=== PATIENT | male | born 1980 | race Caucasian/White ===

== ENCOUNTER 2024-06-03 06:26 | Emergency (ER) | payer SELFPAY ==
[2024-06-03 07:03] LABS: BASOPHILS ABSOLUTE AUTO 0.1 K/mm3 (0.0-0.2); BASOPHILS PERCENT AUTO 0.6 % (0.0-1.0); EOSINOPHILS ABSOLUTE AUTO 0.1 K/mm3 (0.0-0.4); EOSINOPHILS PERCENT AUTO 0.8 % (0.0-6.0); HEMATOCRIT 46.3 % (42.0-52.0); HEMOGLOBIN 16.4 gm/dl (14.0-18.0); IMMATURE GRAN ABSOLUTE AUTO 0.04 K/mm3 (0.00-0.05); IMMATURE GRAN PERCENT AUTO 0.3 % (0.0-0.4); LYMPHOCYTES ABSOLUTE AUTO 2.8 K/mm3 (1.0-4.8); LYMPHOCYTES PERCENT AUTO 22.4 % (24.0-44.0); MEAN CORPUSCULAR HEMOGLOBIN 31.1 pg (28.0-32.0); MEAN CORPUSCULAR HGB CONC 35.4 g/dl (32.0-36.0); MEAN CORPUSCULAR VOLUME 87.9 fl (83.0-99.0); MEAN PLATELET VOLUME 9.6 fl (9.4-12.4); MONOCYTES ABSOLUTE AUTO 0.8 K/mm3 (0.0-0.8); MONOCYTES PERCENT AUTO 6.4 % (0.0-8.0); NEUTROPHILS ABSOLUTE AUTO 8.6 K/mm3 (1.8-7.7); NEUTROPHILS PERCENT AUTO 69.5 % (41.0-71.0); PLATELET COUNT,PLT 275 K/mm3 (150-400); RED BLOOD CELL COUNT 5.27 M/mm3 (4.52-5.90); WHITE BLOOD CELL COUNT,WBC 12.33 K/mm3 (3.9-11.3)
[2024-06-03 07:10] LABS: INR 1.12; PROTHROMBIN TIME 11.8 SECONDS (9.7-12.0)
[2024-06-03 07:11] LABS: PTT,PARTIAL THROMBOPLSTIN TIME 25.9 SECONDS (21.7-31.4)
[2024-06-03 07:17] LABS: A/G RATIO 1.1 (1-2); ALBUMIN 4.3 g/dl (3.4-5.0); ANION GAP 17.2 (5-15); BILIRUBIN TOTAL 2.2 mg/dL (0.2-1.0); C-REACTIVE PROTEIN 0.1 mg/dL (<0.30); CALCIUM 9.4 mg/dL (8.5-10.1); EST CRCL DRUG DOSING (CG) 89.05 mL/min; ETHANOL BLOOD MEDICAL 0.04 gm% (0.00); MAGNESIUM 1.4 mg/dL (1.8-2.4); POTASSIUM,K 3.2 mEq/L (3.5-5.1); PROTEIN TOTAL,TP 8.1 g/dl (6.4-8.2)
[2024-06-03] MEDS: Sodium Chloride 0.9% 1,000 ML IV SCH (07:50)
[2024-06-03] MEDS: LORazepam 2 MG/ML SDV IVPUSH ONE (07:50)
[2024-06-03] MEDS: Ondansetron 4 MG/2 ML SDV IVPUSH ONE (07:50)
[2024-06-03] MEDS: Sodium Chloride 0.9% 10 ML Syringe FLUSH PRN (07:51)
== END 2024-06-03 09:18 | disposition home or self-care (01) ==
LOC: JD.ED 06:26
DX: F10.10 Alcohol abuse, uncomplicated (principal); E86.0 Dehydration; R74.01 Elevation of levels of liver transaminase levels; I10 Essential (primary) hypertension; F17.210 Nicotine dependence, cigarettes, uncomplicated
CPT/HCPCS: 36415; 71045; 71045-26; 80053; 80307; 83690; 83735; 84484; 85025; 85610; 85730; 86140; 93005; 96361; 96374; 96375; 99285-25; J2060; J2405; J3490; J7030